=== PATIENT | female | born 1995 ===

== ENCOUNTER → 2017-06-15 | Outpatient (CLI) | payer OTHER | END | disposition home or self-care (01) | LOC: C.RDSM 13:00 | PROVIDERS: ATTEND Family Medicine Sports Medicine | DX: S92.902A Unspecified fracture of left foot, initial encounter for closed fracture (principal); X58.XXXA Exposure to other specified factors, initial encounter ==

== ENCOUNTER → 2017-07-07 | Outpatient (CLI) | payer OTHER ==
--- NOTE | 2017-07-07 11:41 | DIAGNOSTIC IMAGING REPORT ---
L FOOT MIN 3 VIEWS CLINICAL HISTORY: 22 years-old Female presenting with LEFT FOOT FX. TECHNIQUE: Frontal, oblique, and lateral views of the left foot were obtained. COMPARISON: 06/15/2017. FINDINGS: Transversely oriented extra articular fracture of the proximal metaphysis of the fifth metatarsal. No diastases of the fracture plane. No malalignment. No significant interval change, including no evidence of periosteal reaction. An old avulsion fracture of the base of the fifth metatarsal is also noted. No advanced degenerative change. No radiographic soft tissue abnormality. IMPRESSION: No significant interval healing at the proximal metaphyseal fracture of the fifth metatarsal. No malalignment. Electronically signed by: Valentin Up M.D. 07/07/2017 11:39 AM Dictated Date/Time: 07/07/2017 11:37 AM
== END | disposition home or self-care (01) ==
LOC: C.RDSM 11:30
PROVIDERS: ATTEND Family Medicine
DX: S92.355D Nondisplaced fracture of fifth metatarsal bone, left foot, subsequent encounter for fracture with routine healing (principal); X58.XXXD Exposure to other specified factors, subsequent encounter